=== PATIENT | female | born 1935 | race Hispanic/Latino ===

== ENCOUNTER 2016-08-22 16:03 | Emergency (ER) | payer MEDICARE ==
[2016-08-22 18:43] LABS: Basophils % (Auto) 0.6 % (0.0-1.8); Eosinophils % (Auto) 2.2 % (0.0-4.3); Hematocrit 42.4 % (30.3-42.9); Hemoglobin 14.4 gm/dl (10.1-14.3); Mean Corpuscular HGB Conc 34 % (30-34); Mean Corpuscular Hemoglobin 32 pg (28-32); Mean Corpuscular Volume 93 fl (79-97); Platelet Count 134 K/mm3 (140-440); Red Blood Count 4.56 M/mm3 (3.65-5.03); Red Cell Distribution Width 13.5 % (13.2-15.2); White Blood Count 6.8 K/mm3 (4.5-11.0)
[2016-08-22 18:58] LABS: Alanine Aminotransferase 12 units/L (7-56); Albumin/Globulin Ratio 1.3 %; Alkaline Phosphatase 91 units/L (35-129); Anion Gap 15 mmol/L; BUN/Creatinine Ratio 17.14; Bilirubin,Total 0.6 mg/dL (0.1-1.2); Blood Urea Nitrogen 12 mg/dL (7-17); Calcium 8.8 mg/dL (8.4-10.2); Carbon Dioxide 30 mmol/L (22-30); Chloride 98.8 mmol/L (98-107); Glucose 111 mg/dL (65-100); Potassium 4.2 mmol/L (3.6-5.0); Sodium 140 mmol/L (137-145)
--- NOTE | 2016-08-22 19:58 | Emergency Department Report ---
ED General Adult HPI - General Chief complaint: Fever Stated complaint: FLU LIKE SYMPTOMS Time Seen by Provider: 08/22/16 17:51 Source: EMS Mode of arrival: Stretcher Limitations: No Limitations - History of Present Illness Initial comments: 81-year-old female presents to the emergency department via EMS from a local nursing facility for evaluation of flulike symptoms. Patient states that last night she began having fever, cough, and congestion. Cough has been nonproductive. She denies headache, shortness of breath, nausea, vomiting, diarrhea, or urinary complaints. There are no other complaints. -: Gradual, Last night Consistency: constant Improves with: none Worsens with: none Treatments Prior to Arrival: none - Related Data Home Medications Medication Instructions Recorded Confirmed Last Taken Acetaminophen/Diphenhydramine 1 each PO Q6H PRN 05/25/16 08/22/16 Unknown [Tylenol Pm Ex-Strength Caplet] Diphenoxylate/Atropine [Lomotil] 1 tab PO Q4H PRN 05/25/16 08/22/16 Unknown LORazepam [Ativan] 0.5 mg PO Q6H PRN 05/25/16 08/22/16 Unknown Verapamil 240 mg PO DAILY 08/22/16 08/22/16 Unknown Previous Rx's Medication Instructions Recorded Last Taken Type traMADol [Ultram] 50 mg PO Q4HR PRN #20 tablet 07/30/15 Unknown Rx Nitrofurantoin [place]/M-Cryst 100 mg PO Q12HR #13 capsule 11/30/15 Unknown Rx [Macrobid CAP] Oseltamivir [Tamiflu] 75 mg PO BID #10 cap 08/22/16 Unknown Rx Allergies Allergy/AdvReac Type Severity Reaction Status Date / Time iodine Allergy Unknown Verified 07/30/15 17:41 Penicillins Allergy Unknown Verified 07/30/15 17:41 ED Review of Systems ROS: Stated complaint: FLU LIKE SYMPTOMS Other details as noted in HPI Comment: All other systems reviewed and negative Constitutional: fever ENT: congestion Respiratory: cough ED Past Medical Hx - Past Medical History Previous Medical History?: Yes Hx Hypertension: Yes - Surgical History Past Surgical History?: Yes Additional Surgical History: hysterectomy - Family History Family history: no significant - Social History Smoking Status: Former Smoker Substance Use Type: None - Medications Home Medications: Home Medications Medication Instructions Recorded Confirmed Last Taken Type traMADol [Ultram] 50 mg PO Q4HR PRN #20 tablet 07/30/15 08/22/16 Unknown Rx Nitrofurantoin [place]/M-Cryst 100 mg PO Q12HR #13 capsule 11/30/15 08/22/16 Unknown Rx [Macrobid CAP] Acetaminophen/Diphenhydramine 1 each PO Q6H PRN 05/25/16 08/22/16 Unknown History [Tylenol Pm Ex-Strength Caplet] Diphenoxylate/Atropine [Lomotil] 1 tab PO Q4H PRN 05/25/16 08/22/16 Unknown History LORazepam [Ativan] 0.5 mg PO Q6H PRN 05/25/16 08/22/16 Unknown History Oseltamivir [Tamiflu] 75 mg PO BID #10 cap 08/22/16 Unknown Rx Verapamil 240 mg PO DAILY 08/22/16 08/22/16 Unknown History ED Physical Exam - General Limitations: No Limitations General appearance: alert, in no apparent distress - Head Head exam: Present: atraumatic, normocephalic - Eye Eye exam: Present: normal appearance, PERRL, EOMI - ENT ENT exam: Present: normal exam, normal orophraynx, mucous membranes moist - Neck Neck exam: Present: normal inspection, full ROM. Absent: tenderness - Respiratory Respiratory exam: Present: normal lung sounds bilaterally. Absent: respiratory distress - Cardiovascular Cardiovascular Exam: Present: regular rate, normal rhythm, normal heart sounds - GI/Abdominal GI/Abdominal exam: Present: soft, normal bowel sounds. Absent: distended, tenderness - Extremities Exam Extremities exam: Present: normal inspection, full ROM. Absent: tenderness - Back Exam Back exam: Present: normal inspection, full ROM. Absent: tenderness - Neurological Exam Neurological exam: Present: alert, oriented X3. Absent: motor sensory deficit - Skin Skin exam: Present: warm, dry, intact ED Course Vital Signs 08/22/16 08/22/16 08/22/16 17:31 17:45 17:46 Temperature 99.8 F H Pulse Rate 77 Respiratory 18 Rate Blood Pressure 172/79 Blood Pressure 179/72 [Left] O2 Sat by Pulse 96 95 95 Oximetry 08/22/16 08/22/16 08/22/16 18:00 18:15 18:25 Temperature 98.5 F Pulse Rate 70 Respiratory 18 Rate Blood Pressure 180/66 170/77 Blood Pressure 177/90 [Left] O2 Sat by Pulse 95 94 Oximetry 08/22/16 08/22/16 08/22/16 18:30 18:45 19:00 Temperature Pulse Rate Respiratory Rate Blood Pressure 190/66 183/66 181/63 Blood Pressure [Left] O2 Sat by Pulse 94 95 93 Oximetry 08/22/16 08/22/16 08/22/16 19:17 19:30 19:42 Temperature Pulse Rate 84 Respiratory 16 Rate Blood Pressure 181/63 154/84 Blood Pressure 154/84 [Left] O2 Sat by Pulse 98 97 95 Oximetry 08/22/16 19:50 Temperature Pulse Rate Respiratory 20 Rate Blood Pressure Blood Pressure [Left] O2 Sat by Pulse 95 Oximetry ED Medical Decision Making - Lab Data Result diagrams: 08/22/16 18:14 08/22/16 18:14 - Radiology Data Radiology results: image reviewed interpreted by me: Chest x-ray shows no acute cardiopulmonary abnormality. - Medical Decision Making Lab and imaging results reviewed and discussed the patient. Since the patient lives in a custodial and her symptoms began less than 24 hours ago, the patient will be started on Tamiflu. Patient will be discharged back to the custodial at this time. - Differential Diagnosis influenza, pneumonia, bronchitis Critical care attestation.: If time is entered above; I have spent that time in minutes in the direct care of this critically ill patient, excluding procedure time. ED Disposition Clinical Impression: Influenza B Disposition: DC/TX ANOTHER TYPE HEALTHCARE Is pt being admited?: No Condition: Stable Instructions: Influenza (ED) Prescriptions: Oseltamivir [Tamiflu] 75 mg PO BID #10 cap Referrals: PRIMARY CARE, [Primary Care Provider] - 3-5 Days Time of Disposition: 22:19
[2016-08-22 22:00] LABS: Bilirubin,Urine NEG (Negative); Blood,Urine MOD (Negative); Ketones,Urine NEG (Negative); Leukocyte Esterase,Urine TR (Negative); Mucus,Urine FEW /HPF; Nitrite,Urine NEG (Negative); Protein,Urine <15 mg/dL mg/dL (Negative); Urobilinogen,Urine < 2.0 mg/dL (<2.0)
[2016-08-22 22:42] VITALS: BP 177/81
--- NOTE | 2016-08-23 09:58 | XRay Report ---
AP CHEST: HISTORY: Fever, sepsis AP view of the chest demonstrates a normal mediastinal and cardiac contour with clear lungs and normal bony and soft tissue structures. IMPRESSION: Unremarkable AP chest.
== END 2016-08-22 23:11 | disposition other institution (70) ==
LOC: ED 16:03
DX: J10.1 Influenza due to other identified influenza virus with other respiratory manifestations (principal); I10 Essential (primary) hypertension; Z88.0 Allergy status to penicillin; Z88.8 Allergy status to other drugs, medicaments and biological substances; Z87.891 Personal history of nicotine dependence
CPT/HCPCS: 36415; 71010; 80053; 81001; 82140; 85025; 87116; 87400; 87430; 99285